=== PATIENT | male | born 1990 | race African-American/Black ===

== ENCOUNTER 2017-05-13 10:09 | Emergency (ER) | payer OTHER, SELFPAY ==
--- NOTE | 2017-05-13 11:00 | RAD ---
THREE VIEWS RIGHT ANKLE: Comparison: None. History: Right ankle pain after injection yesterday. FINDINGS: Three views of the right ankle shows moderate lateral soft tissue swelling. There is no evidence of f racture or dislocation. IMPRESSION: Soft tissue swelling without acute osseous abnormality. POS: [facility]
== END 2017-05-13 12:10 | disposition home or self-care (01) ==
LOC: ERS 10:09
DX: S93.401A Sprain of unspecified ligament of right ankle, initial encounter (principal); W22.8XXA Striking against or struck by other objects, initial encounter

== ENCOUNTER 2018-06-12 04:27 | Emergency (ER) | payer OTHER, SELFPAY ==
[2018-06-12] MEDS ORDERED: Ibuprofen 800 MG TAB ONE (04:58)
== END 2018-06-12 05:04 | disposition home or self-care (01) ==
LOC: ERS 04:27
DX: J06.9 Acute upper respiratory infection, unspecified (principal); H66.91 Otitis media, unspecified, right ear
CPT/HCPCS: 87804; 99283

== ENCOUNTER 2022-09-07 06:34 | Emergency (ER) | payer SELFPAY ==
[2022-09-07] MEDS ORDERED: Ondansetron ODT 4 MG TAB ONE (06:46)
== END 2022-09-07 06:55 | disposition home or self-care (01) ==
LOC: ERS 06:34
DX: R11.10 Vomiting, unspecified (principal); R19.7 Diarrhea, unspecified
CPT/HCPCS: 99283; Q0162

== ENCOUNTER 2024-11-29 15:21 | Emergency (ER) | payer SELFPAY ==
[2024-11-29] MEDS ORDERED: cloNIDine 0.1 MG TAB ONE (19:15)
[2024-11-29 20:44] LABS: #Basophils Less than 0.03 10x3/uL (0.0-0.2); #Eosinophils 0.25 10x3/uL (0.0-0.7); #Monocytes 0.46 10x3/uL (0.11-0.59); #Neutrophils 2.08 10x3/uL (1.40-6.50); %Basophils 0.2 % (0.0-1.0); %Eosinophils 4.9 % (0.0-10.0); %Lymphocytes 45.3 % (21.0-51.0); %Monocytes 8.9 % (0.0-10.0); %Neutrophils 40.5 % (42.0-75.0); Hematocrit 43.1 % (42.0-52.0); Hemoglobin 14.3 g/dL (14.0-18.0); Mean Corpuscular Hemoglobin 28.3 pg (27.0-31.0); Mean Corpuscular Volume 85.3 fL (78.0-98.0); Platelet Count 195 10x3/uL (130-400); Red Blood Cell (RBC) Count 5.05 mill/uL (4.70-6.10); White Blood Cell (WBC) Count 5.14 10x3/uL (4.8-10.8)
[2024-11-29 21:02] LABS: ALT (SGPT) 22 U/L (Less than 45); AST (SGOT) 23 U/L (11-34); Albumin 4.1 g/dL (3.1-4.5); Alkaline Phosphatase 112 U/L (40-110); Anion Gap 12 mmol/L (10-20); BUN (Urea Nitrogen) 10 mg/dL (8.9-20.6); Bilirubin, Total 0.3 mg/dL (0.3-1.2); Calc. Creatinine Clearance 0 mL/min (70-130); Calcium 9.4 mg/dL (7.8-10.44); Carbon Dioxide 25 mmol/L (22-29); Chloride 104 mmol/L (98-107); Globulin 3.0 g/dL (2.4-3.5); Glucose 90 mg/dL (70-105); Potassium 4.0 mmol/L (3.5-5.1); Sodium 137 mmol/L (136-145)
== END 2024-11-29 21:24 | disposition home or self-care (01) ==
LOC: ERS 15:21
DX: I10 Essential (primary) hypertension (principal); I44.7 Left bundle-branch block, unspecified
CPT/HCPCS: 80053; 85025; 93005; 99283